=== PATIENT | female | born 1970 | race Caucasian/White ===

== ENCOUNTER 2021-04-04 12:55 | Emergency (ER) | payer OTHER, SELFPAY ==
[2021-04-04 13:07] VITALS: BP 104/81; PULSE 69; RESP 16; O2SAT 97; BMI 32.3
--- NOTE | 2021-04-04 13:36 | ED.SKABFB ---
HPI - Skin/Abscess/Foreign Bdy General Chief complaint: Skin/Abscess/Foreign Body <MINERVA Rubio - Last Filed: 04/04/21 15:34> Stated complaint: rash <MINERVA Rubio Last Filed: 04/04/21 15:34> Time Seen by Provider: 04/04/21 13:32 <MINERVA Rubio - Last Filed: 04/04/21 15:34> Source: patient <MINERVA Rubio Last Filed: 04/04/21 15:34> Mode of arrival: ambulatory <MINERVA Rubio Last Filed: 04/04/21 15:34> Limitations: no limitations <MINERVA Rubio Last Filed: 04/04/21 15:34> History of Present Illness HPI narrative: 51-year-old female presenting for evaluation of a raised, bumpy, red and itchy rash that appeared on her arms trunk and buttock area for the last 5 days. She reports there have been blistering and drainage to the areas. She was working outside 2 weeks ago and thinks she may have had poison harmony exposure. The 1st lesion was on her right arm it has spread to multiple areas of her body after itching. She has had no shortness of breath or wheezing. In addition to the rash patient also complains of right lower dental pain and had a recent tooth extraction. She is worried about infection. She states she has some pain in her right lower jaw that is radiating into her head. She denies any drainage from the area no fevers. She is able to eat and drink normally. She is not prescribed antibiotics after her extraction. <MINERVA Rubio - Last Filed: 04/04/21 15:34> MD complaint: rash and other (Dental pain) <MINERVA Rubio Last Filed: 04/04/21 15:34> Onset (ago): day(s) (5) <MINERVA Rubio Last Filed: 04/04/21 15:34> Tetanus up to date: yes <MINERVA Rubio Last Filed: 04/04/21 15:34> Location: chest, back, LUE, RUE and buttocks <MINERVA Rubio Last Filed: 04/04/21 15:34> Severity: moderate <MINERVA Rubio Last Filed: 04/04/21 15:34> Quality: burning and pruritic <MINERVA Rubio Last Filed: 04/04/21 15:34> Pain Consistency: constant <MINERVA Rubio Last Filed: 04/04/21 15:34> Relieving factors: topical medication <MINERVA Rubio Last Filed: 04/04/21 15:34> Exacerbating factors: palpation <MINERVA Rubio Last Filed: 04/04/21 15:34> Context: other (Possible poison harmony exposure) <MINERVA Rubio Last Filed: 04/04/21 15:34> Associated symptoms: denies other symptoms <MINERVA Rubio Last Filed: 04/04/21 15:34> Treatments prior to arrival: none <MINERVA Rubio Last Filed: 04/04/21 15:34> Related Data Home medications: Previous Rx's Medication Instructions Recorded prednisone 10 mg tablets in a dose 10 mg PO PER PKG DIR #48 ea 04/04/21 pack <MINERVA Rubio Last Filed: 04/04/21 15:34> Allergies/Adverse reactions: Allergies Allergy/AdvReac Type Severity Reaction Status Date / Time penicillin V Allergy Unknown trouble Verified 09/06/17 00:00 sleeping Penicillins [PENICILLINS] Allergy Unknown UNKNOWN Unverified 01/11/20 16:10 <MINERVA Rubio Last Filed: 04/04/21 15:34> Review of Systems Review of Systems: Constitutional: No Fever, No Chills ENT/Mouth: No sore throat, No Rhinorrhea, No Swallowing Difficulty, +dental pain Eyes: No Eye Pain, No Swelling, No Redness Cardiovascular: No Chest Pain, No SOB Respiratory: No Cough, No Sputum, No Wheezing, No dyspnea Gastrointestinal: No Nausea, No Vomiting, No abdominal Pain Musculoskeletal: No joint pain, No Myalgias Skin: No Skin Lesions, + rash Neuro: No Weakness, No Numbness, No Dizziness, + Headache Psych: + Anxiety/Panic, No Depression Heme/Lymph: No Bruising, No Lymphadenopathy <MINERVA Rubio - Last Filed: 04/04/21 15:34> [facility]LY [facility] Past Medical History Medical History: Medical History (Updated 04/04/21 @ 13:37 by MINERVA Rubio) Diabetic acetonemia <MINERVA Rubio - Last Filed: 04/04/21 15:34> Social History Social History: Social History Advance Directives: No Advance Directives Information Provided: No Patient : No <MINERVA Rubio - Last Filed: 04/04/21 15:34> Physical Exam Vital Signs: Vital Signs: Last Vital Signs Pulse 69 04/04/21 13:07 Resp 16 04/04/21 13:07 BP 104/81 04/04/21 13:07 Pulse Ox 97 04/04/21 13:07 BMI result Body Mass Index 32.3 <MINERVA Rubio - Last Filed: 04/04/21 15:34> Vital Signs: Last Vital Signs Pulse 69 04/04/21 13:07 Resp 16 04/04/21 13:07 BP 104/81 04/04/21 13:07 Pulse Ox 97 04/04/21 13:07 BMI result Body Mass Index 32.3 <Samy Shipman MD - Last Filed: 04/04/21 17:32> Appearance: Alert. Oriented X3. No acute distress. Eyes: Pupils equal, round and reactive to light. ENT: Face is symmetrical, no swelling. Pharynx normal. Site of dental extraction right 1st molar with a small piece of food stuck in the cavity, no palpable gingival fluctuance or erythema. Neck: Normal inspection. Neck supple. No lymphadenopathy CVS: Normal heart rate and rhythm. Pulses normal. Respiratory: No respiratory distress. Breath sounds normal. Skin: Skin warm and dry. Normal skin color. Normal skin turgor. Scattered maculopapular rash with fluid-filled vesicles located on bilateral arms, trunk, hips. Extremities: No lower extremity edema. Neuro: Oriented X 3 grossly normal, novel <MINERVA Rubio - Last Filed: 04/04/21 15:34> Course Course Course Narrative: 51-year-old female presenting with several complaints today. Primarily she has a diffuse pruritic, erythematous rash scattered throughout her body that is most consistent with poison harmony dermatitis. Given extent will treat with a prednisone taper. She also complains of dental pain with a site of recent dental extraction. We discussed the importance of flushes and rinses in order to prevent food from getting stuck in the cavity. She will follow-up with dental here. There appears to be no abscess or infection at this time. She is stable for discharge home with course of steroids and outpatient follow-up. Patient agrees with plan. <MINERVA Rubio Last Filed: 04/04/21 15:34> Critical Care Time Critical Care Time Critical Care Time: No <MINERVA Rubio Last Filed: 04/04/21 15:34> Discharge Plan Discharge Clinical Impression: Contact dermatitis Qualifiers: Contact dermatitis type: irritant Contact dermatitis trigger: unspecified trigger Qualified Code(s): L24.9 - Irritant contact dermatitis, unspecified cause <MINERVA Rubio Last Filed: 04/04/21 15:34> Patient Disposition: Home, Self-Care <MINERVA Rubio Last Filed: 04/04/21 15:34> Instructions: Contact Dermatitis (ED) <MINERVA Rubio Last Filed: 04/04/21 15:34> Additional Instructions: Take the prescribed steroid as directed. This is prescribed in a tapering fashion that will slowly decrease the dose every 4 days. Complete the entire course. If you stop this to early it may rebound your rash causing it to become worse. Use gentle and hypoallergenic soap. Avoid scented lotion and perfume. Recommend taking Benadryl 25-50 mg as needed for itching. This is available [id number]. Take Motrin and Tylenol as needed for headache and tooth pain. This does not appear to be infected Follow-up with your doctor as needed If you develop new or worsening symptoms call 911 or come back to the ER for further evaluation. <MINERVA Rubio Last Filed: 04/04/21 15:34> Prescriptions: New prednisone 10 mg tablets,dose pack 10 mg PO PER PKG DIR Qty: 48 RF: 0 <MINERVA Rubio Last Filed: 04/04/21 15:34> Interventions: ED Discharge Assessment Last Done: 04/04/21 13:59 <MINERVA Rubio Last Filed: 04/04/21 15:34> Discharge Date/Time: 04/04/21 14:01 <MINERVA Rubio - Last Filed: 04/04/21 15:34>
== END 2021-04-04 14:01 | disposition home or self-care (01) ==
PROVIDERS: Emergency Provider Emergency Medicine; PCP Internal Medicine
DX: L24.9 Irritant contact dermatitis, unspecified cause (principal); Z79.899 Other long term (current) drug therapy
CPT/HCPCS: 99283

== ENCOUNTER 2021-05-01 13:23 | Emergency (ER) | payer OTHER, SELFPAY ==
--- NOTE | ~2021-05-01 | XR_ITS ---
EXAMINATION: XR CHEST CLINICAL INFORMATION: Cough. COMPARISON: Chest radiograph dated from 04/25/2018. TECHNIQUE: PA view of the chest was obtained. FINDINGS: Normal appearance of the cardiomediastinal silhouette. Mild perihilar bronchial wall thickening is unchanged. No focal airspace opacities, pleural effusions or pneumothorax. No acute osseous abnormalities. The visualized upper abdomen is within normal limits. XR/XR chest 1V IMPRESSION: Perihilar bronchial wall thickening is unchanged suggestive of chronic reactive airways disease. No acute cardiopulmonary findings.
[2021-05-01 13:54] VITALS: BP 120/78; PULSE 76; RESP 18; TEMP 36.6; O2SAT 96; BMI 34.8
[2021-05-01 14:20] LABS: COVID-19 Test Positive (Negative); IDNOW Serial# 9DD0AD1C; Strep A Nucleic Acid Negative (Negative)
--- NOTE | 2021-05-01 17:42 | ED.URI ---
HPI - URI/Sore Throat General Chief Complaint: Upper Respiratory Symptoms Stated Complaint: sore throat headache fatigue congested Time Seen by Provider: 05/01/21 15:14 History of Present Illness HPI Narrative: Patient complains of sore throat headache congested and a cough for 3 days no chest pain no shortness of breath no fever no chills no vomiting Patient did not get the COVID vaccine and is diabetic Related Data Previous Rx's Medication Instructions Recorded prednisone 10 mg tablets in a dose 10 mg PO PER PKG DIR #48 ea 04/04/21 pack Allergies Allergy/AdvReac Type Severity Reaction Status Date / Time penicillin V Allergy Unknown trouble Verified 09/06/17 00:00 sleeping Penicillins [PENICILLINS] Allergy Unknown UNKNOWN Unverified 01/11/20 16:10 Review of Systems Review of Systems: Positive cough fatigue headache Negatives are no fever no chills no dizziness no weakness no stiff neck no difficulty breathing or swallowing no shortness of breath no chest pain no abdominal pain no nausea vomiting or diarrhea Yes all other systems are reviewed and are negative PMFSH Past Medical History Source: nursing notes reviewed Medical History (Updated 05/01/21 @ 17:47 by MINERVA Rivera) Diabetic acetonemia Hypothyroid Social History Social History Advance Directives: No Advance Directives Information Provided: Yes Physical Exam Vital Signs: Vital Signs: Last Vital Signs Temp 98 F 05/01/21 13:54 Pulse 76 05/01/21 13:54 Resp 18 05/01/21 13:54 BP 120/78 05/01/21 13:54 Pulse Ox 96 05/01/21 13:54 BMI result Body Mass Index 34.8 General appearance is no acute distress Eyes no redness or discharge The sinuses nontender The pharynx is clear with no redness swelling or exudate, mucous membranes moist Neck is supple Chest clear to auscultation bilateral Heart no murmur Extremities full range of motion x4 Course Course Course Narrative: Well-appearing patient with normal vital signs, clear lungs but a positive COVID test is discharge As she is diabetic she is given the she referral for monoclonal antibodies MDM - URI/Sore Throat Lab Data Labs: Lab Results 05/01/21 05/01/21 Range/Units 14:02 14:02 COVID-19 (GIORGIO) Positive A (Negative) COVID-19 Clin Com See Note S. pyogenes GrpA SELENE Negative (Negative) Discharge Plan Discharge Clinical Impression: COVID-19 Patient Disposition: Home, Self-Care Additional Instructions: Today your well-appearing with no evidence of any dangerous condition today but you do have COVID As you have diabetes your risk of getting worse so we are referring you for the monoclonal antibodies which help protect from severe disease Return to the ER any time any worse condition or any concerns Prescriptions: No Action prednisone 10 mg tablets,dose pack 10 mg PO PER PKG DIR Qty: 48 RF: 0
== END 2021-05-01 18:09 | disposition home or self-care (01) ==
PROVIDERS: Emergency Provider Emergency Medicine Emergency Medical Services; PCP Internal Medicine
DX: U07.1 COVID-19 (principal)
CPT/HCPCS: 71045; 87635; 87651; 99283

== ENCOUNTER 2021-05-07 15:07 | Outpatient (REF) | payer OTHER, SELFPAY ==
[2021-05-07 15:57] LABS: COVID-19 Test Negative (Negative)
== END 2021-05-07 15:08 | disposition home or self-care (01) ==
LOC: HO.LAB 15:07
PROVIDERS: Visit Provider Internal Medicine
DX: Z20.822 Contact with and (suspected) exposure to COVID-19 (principal)
CPT/HCPCS: 87635; C9803

== ENCOUNTER → 2021-07-03 10:00 | Outpatient (BNVA) | payer OTHER, SELFPAY | PROVIDERS: PCP Internal Medicine; Referring Provider Internal Medicine; Visit Provider Physician Assistant Surgical ==

== ENCOUNTER → 2021-07-10 13:16 | Outpatient (BNVA) | payer OTHER, SELFPAY | PROVIDERS: PCP Internal Medicine; Referring Provider Internal Medicine; Visit Provider Physician Assistant Surgical | DX: E66.9 Obesity, unspecified (principal); Z68.36 Body mass index [BMI] 36.0-36.9, adult | CPT/HCPCS: 99202 ==

== ENCOUNTER → 2021-08-07 08:05 | Outpatient (BNVA) | payer OTHER, SELFPAY | PROVIDERS: PCP Internal Medicine; Visit Provider Dietitian, Registered | DX: E66.9 Obesity, unspecified (principal); E11.9 Type 2 diabetes mellitus without complications; Z71.3 Dietary counseling and surveillance | CPT/HCPCS: 97802 ==

== ENCOUNTER 2022-01-21 11:04 | Emergency (ER) | payer OTHER, SELFPAY ==
[2022-01-21 12:48] VITALS: BP 131/87; PULSE 54; RESP 18; TEMP 36.2; O2SAT 99; BMI 32.8
[2022-01-21 13:37] LABS: COVID-19 Test Positive (Negative); IDNOW Serial# 08D9AD1C; Strep A Nucleic Acid Negative (Negative)
--- NOTE | 2022-01-21 15:05 | ED.GENADULT ---
HPI - General Adult General Chief complaint: General Medical Stated complaint: Poison patricia, possible covid Time Seen by Provider: 01/21/22 14:16 Source: patient Mode of arrival: ambulatory History of Present Illness HPI narrative: 51-year-old female with past medical history of diabetes, HTN, presenting to the ED complaining of poison patricia to chest, upper extremities, in flank since Wednesday s/p doing yard work. Also reports boyfriend is COVID-19 positive, would like to check if she has COVID. Admits was seen at urgent care on Wednesday, prescribed prednisone taper with a relief. Has also been taking Benadryl. Denies fever, chills, cough, chest pain, shortness of breath, new exposures, new medications/lotions and or detergent Onset (ago): day(s) Related Data Home Medications Medication Instructions Recorded Confirmed cholecalciferol (vitamin D3) 50 50 mcg PO DAILY 07/03/21 07/10/21 mcg (2,000 unit) capsule metformin 500 mg tablet 500 mg PO DAILY 07/03/21 07/10/21 methimazole 10 mg tablet 10 mg PO BID 07/03/21 07/10/21 atenolol 25 mg tablet 50 mg PO DAILY 07/10/21 07/10/21 duloxetine 30 mg capsule,delayed 30 mg PO .qhs 07/10/21 07/10/21 release (Cymbalta) Previous Rx's Medication Instructions Recorded cetirizine 10 mg tablet (Zyrtec) 10 mg PO DAILY #30 tabs 01/21/22 famotidine 20 mg tablet (Pepcid AC) 20 mg PO DAILY #30 tabs 01/21/22 triamcinolone acetonide 0.025 % 1 appl topical BID #60 mL 01/21/22 lotion Allergies Allergy/AdvReac Type Severity Reaction Status Date / Time penicillin V Allergy Unknown trouble Verified 07/10/21 13:20 sleeping Penicillins [PENICILLINS] Allergy Unknown UNKNOWN Verified 07/10/21 13:20 Review of Systems Review of Systems: Constitutional: No Fever, No Chills, No Fatigue, No Malaise ENT/Mouth: No Ear Pain, No Nasal Congestion, No Sinus Pain, + sore throat, No Rhinorrhea, No Swallowing Difficulty Eyes: No Eye Pain, No Swelling, No Redness, No Discharge, No Vision Changes Cardiovascular: No Chest Pain, No SOB, No Edema, No Palpitations Respiratory: No Cough, No Sputum, No Dyspnea Gastrointestinal: No Nausea, No Vomiting, No Diarrhea, No Constipation, No Abdominal pain Genitourinary: No irregular bleeding, No Dysuria, No Urinary Frequency, No Hematuria, No Flank Pain, No Urinary Flow Changes, No Hesitancy Musculoskeletal: No joint pain, No Myalgias, No Joint Swelling Skin: No Skin Lesions, + rash Neuro: No Weakness, No Dizziness, No Headache Yes all other systems are reviewed and are negative Constitutional: Constitutional: Reports as per [facility] Past Medical History Attestation statement: The following information was validated with the patient. Medical History (Updated 01/21/22 @ 15:09 by MINERVA Michael) Diabetic acetonemia Hypothyroid Surgical History Hx of abdominoplasty Hx of cholecystectomy Hx of colonoscopy Hx of plastic surgery Family History Family History Mother Hypertension Father No problems noted. Sister Depression Sister Depression Sister Depression Sister Depression Bipolar 1 disorder PTSD (post-traumatic stress disorder) Schizophrenia Son PTSD (post-traumatic stress disorder) Depression Daughter No problems noted. Daughter Depression Diabetes Social History Social History (Reviewed 07/10/21 @ 13:29 by Cinda Rebolledo [facility]) Alcohol intake: current Alcohol intake frequency: holidays/special occasions only Patient Tobacco Use Status: Former Tobacco user Advance Directives: No Advance Directives Information Provided: Yes Physical Exam ED Vital Signs: Vital Signs - 24 hr 01/21/22 12:48 Temperature 97.2 F Pulse Rate 54 Respiratory Rate 18 Blood Pressure 131/87 Pulse Oximetry 99 Oxygen Delivery Method Room Air BMI result Body Mass Index 32.8 Const General: cooperative, healthy appearing and no acute distress Orientation/consciousness: patient oriented x3 Limitations: no limitations HENMT Head: Yes normal to inspection and Yes atraumatic Ears: hearing grossly normal bilaterally General nose exam: Normal external nose present Face and sinus: Yes normal facial exam Eyes General: appearance normal, both eyes and all related structures EOM: EOMs intact bilaterally Neck Neck: Yes normal visual inspection and Yes no meningeal signs Resp Effort & Inspection: normal respiratory effort and no respiratory distress Auscultation: clear to auscultation bilaterally Cardio Rate: regular rate Heart sounds: S1 normal heart sound present and S2 normal heart sound present GI Inspection: Yes normal to inspection Palpation (GI): Soft to palpation, nontender, no guarding and not rigid General: Yes no CVA tenderness Back/Spine/Pelvis Back: no CVA tenderness Skin Other: + poison patricia noted to bilatral arms > L antecubital area with excoriations. Macular papular coalescing rash noted to chest and small patch to R flank. No palm or sole involvement General skin exam: Excoriation Wounds: no wounds Neuro General: patient oriented x3, tone normal and no meningeal signs Gait exam (Neuro): Normal gait present Extrem General: Yes normal to inspection Medical Decision Making MDM Narrative Medical decision making narrative: 51-year-old female with past medical history of diabetes, HTN, presenting to the ED complaining of poison patricia to chest, upper extremities, in flank since Wednesday s/p doing yard work. On exam low-grade temp 99.3 degrees, NAD, nontoxic appearing physical as above with noted rash. No mucous membrane or palm/sole involvement. Rash suspicious for poison patricia. Also concern for COVID-19/viral illness with exposure. Low concern for pneumonia Plan: COVID-19 testing, topical triamcinolone, Zyrtec/Pepcid Medical Records Medical records reviewed: Yes I reviewed the patient's medical records. Lab Data Lab results reviewed: Yes I reviewed the patient's lab results. Labs: Lab Results 01/21/22 01/21/22 Range/Units 12:56 12:56 COVID-19 (GIORGIO) Positive A (Negative) COVID-19 Clin Com See Note S. pyogenes GrpA SELENE Negative (Negative) Discharge Plan Discharge Clinical Impression: COVID-19, Poison patricia Patient Disposition: Home, Self-Care Instructions: Poison Patricia (ED), COVID-19 (Coronavirus Disease 2019) (ED) Additional Instructions: Continue taking previously prescribed prednisone for your poison patricia. Additionally use triamcinolone lotion on rash areas, Zyrtec, and Pepcid. Zyrtec will not make you drowsy. Continue also taking Benadryl at home. Your COVID-19 positive, continue to self isolate. If symptoms persist or worsen, fever unresolved with medications, shortness breath or chest pain return to the ED At this time you will be okay for discharge. Please self isolate for 5-10 days. Do not expose yourself to others. You may not go to work or school. Please continue to follow cold instructions and wash your hands frequently. You may take Tylenol / Motrin as directed on the bottle for pain or fever. If you have constant or persistent shortness of breath, fever unresolved with medications, chest pain, or your unable to eat or drink please return to the ED CDC Guidelines for home isolation: - Stay away from others - WEAR A MASK if you are sick AND STAY HOME - Cover your mouth and nose with a tissue when you cough or sneeze. Dispose of tissues in a lined trash can and wash your hands immediately with soap and water for at least 20 seconds. If soap and water are not available, clean hands with alcohol-based hand product demonstrator that contains at least 60% alcohol. - Clean your hands often with soap and water for at least 20 seconds - Avoid touching your eyes, nose and mouth with unwashed hands - Do not share dishes, drinking glasses, cups, eating utensils, towels, or bedding with other people in your home. After using these items, wash them thoroughly with soap and water or put in the animal caregiver. - Clean high-touch surfaces in your isolation area ( sick room and bathroom) every day; let a caregiver clean and disinfect high-touch surfaces in other areas of the home. Clean the area or item with soap and water or another detergent if it is dirty. Then, use a household disinfectant. - Limit contact with pets and animals: If you must care for a pet, wash your hands before and after interacting with them) Prescriptions: New triamcinolone acetonide 0.025 % lotion 1 appl topical BID Qty: 60 1RF Rx Instructions: Do not apply to face, hands, feet, or genital region as has potential to discolor skin cetirizine [Zyrtec] 10 mg tablet 10 mg PO DAILY Qty: 30 0RF famotidine [Pepcid AC] 20 mg tablet 20 mg PO DAILY Qty: 30 0RF No Action metformin 500 mg tablet 500 mg PO DAILY methimazole 10 mg tablet 10 mg PO BID cholecalciferol (vitamin D3) 50 mcg (2,000 unit) capsule 50 mcg PO DAILY atenolol 25 mg tablet 50 mg PO DAILY duloxetine [Cymbalta] 30 mg capsule,delayed release(DR/EC) 30 mg PO .qhs Referrals: Iva Valdez MD [Primary Care Provider] - 5 days
[2022-01-21] MEDS: Loratadine 10 MG TABLET PO (15:22)
[2022-01-21] MEDS: Famotidine 20 MG TABLET PO (15:22)
== END 2022-01-21 15:40 | disposition home or self-care (01) ==
PROVIDERS: Emergency Provider Emergency Medicine; PCP Internal Medicine
DX: U07.1 COVID-19 (principal); L23.7 Allergic contact dermatitis due to plants, except food; E11.9 Type 2 diabetes mellitus without complications; I10 Essential (primary) hypertension; E66.9 Obesity, unspecified; Z68.32 Body mass index [BMI] 32.0-32.9, adult; Z79.84 Long term (current) use of oral hypoglycemic drugs
CPT/HCPCS: 87635; 87651; 99283

== ENCOUNTER 2022-01-26 10:53 | Outpatient (REF) | payer OTHER, SELFPAY ==
[2022-01-26 11:31] LABS: COVID-19 Test Positive (Negative); IDNOW Serial# 16C4AD1C
== END 2022-01-26 10:54 | disposition home or self-care (01) ==
LOC: HO.LAB 10:53
PROVIDERS: Visit Provider Internal Medicine
DX: Z20.822 Contact with and (suspected) exposure to COVID-19 (principal)
CPT/HCPCS: 87635; C9803

== ENCOUNTER 2023-06-04 15:00 | Outpatient (RCR) | payer OTHER, SELFPAY | END 2023-06-16 09:24 | disposition home or self-care (01) | LOC: HO.OT 15:00 | PROVIDERS: Visit Provider Physician Assistant | DX: S69.81XD Other specified injuries of right wrist, hand and finger(s), subsequent encounter (principal) | CPT/HCPCS: 29130; 97033; 97035; 97110; 97165; 97535; 97760 ==

== ENCOUNTER 2023-09-22 10:14 | Outpatient (AMB) | payer OTHER, SELFPAY ==
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
== END 2023-09-22 10:59 | disposition home or self-care (01) ==
PROVIDERS: Visit Provider Orthopaedic Surgery
DX: M66.241 Spontaneous rupture of extensor tendons, right hand (principal)
CPT/HCPCS: 99203

== ENCOUNTER 2023-09-22 12:32 | Outpatient (REF) | payer OTHER, SELFPAY ==
--- NOTE | ~2023-09-22 | XR_ITS ---
EXAMINATION: XR HAND, RIGHT CLINICAL INFORMATION: Pain in distal aspect of right second digit. COMPARISON: None available. TECHNIQUE: PA, lateral, and oblique views of the right hand. FINDINGS: Advanced degenerative changes with hypertrophic change and joint space narrowing in the distal interphalangeal joint of the second digit. Bone mineralization is normal. Moderate degenerative changes with hypertrophic change and joint space narrowing in the IP joint of the thumb. Narrowing and sclerosis at the first metacarpophalangeal joint. Corticated ossicle distal to the ulnar styloid. XR/XR hand RT min 3V IMPRESSION: 1. Advanced degenerative changes in the distal interphalangeal joint of the second digit. 2. Moderate degenerative changes in the IP joint of the thumb. 3. Corticated ossicle distal to the ulnar styloid.
== END 2023-09-22 12:33 | disposition home or self-care (01) ==
LOC: HO.HOSX 12:32
DX: M79.641 Pain in right hand (principal); M66.241 Spontaneous rupture of extensor tendons, right hand
CPT/HCPCS: 73130; 99202